=== PATIENT | female | born 1995 | race Caucasian/White ===

== ENCOUNTER 2017-08-28 02:50 | Emergency (ER) | payer BC ==
[~2017-08-28] VITALS: Ht 170.2 cm; Wt 59.8 kg
[2017-08-28 02:54] VITALS: BP 139/63; PULSE 80; RESP 18; TEMP 97.9; O2SAT 99
[2017-08-28 03:24] VITALS: BP 139/65; PULSE 80; RESP 18; O2SAT 99
[2017-08-28] MEDS ORDERED: SODIUM CHLOR 0.9% 1000 ML INJ 1,000 ML IV ONE ×2 (03:34→05:00)
[2017-08-28] MEDS ORDERED: SODIUM CHLORIDE 0.9% FLUSH 10 ML FLUSH IVF PRN (03:45)
[2017-08-28] MEDS ORDERED: PANTOPRAZOLE SODIUM 40 MG VIAL IV PUSH ONE (03:45)
[2017-08-28] MEDS ORDERED: ONDANSETRON HCL 4 MG/2 ML VIAL IV PUSH ONE (03:45)
[2017-08-28 03:59] LABS: AUTOMATED NEUTROPHIL # 13.2 TH/MM3 (1.8-7.7); BASOPHIL # 0.1 TH/MM3 (0-0.2); BASOPHIL % 0.4 % (0.0-2.0); EOSINOPHIL # 0.1 TH/MM3 (0-0.4); EOSINOPHIL % 0.4 % (0.0-4.0); HEMOGLOBIN 14.9 GM/DL (11.6-15.3); LYMPH % 12.1 % (9.0-44.0); LYMPHOCYTE # 1.9 TH/MM3 (1.0-4.8); MEAN CELL VOLUME 89.3 FL (80.0-100.0); MEAN CORPUSCULAR HEMOGLOBIN 30.3 PG (27.0-34.0); MEAN CORPUSCULAR HGB CONC 33.9 % (32.0-36.0); MEAN PLATELET VOLUME 8.5 FL (7.0-11.0); MONO % 4.3 % (0.0-8.0); MONOCYTE # 0.7 TH/MM3 (0-0.9); NEUT % 82.8 % (16.0-70.0); PLATELET COUNT 271 TH/MM3 (150-450); RED BLOOD COUNT 4.93 MIL/MM3 (4.00-5.30); RED CELL DISTRIBUTION WIDTH 11.5 % (11.6-17.2)
[2017-08-28 04:08] LABS: CHLORIDE 103 MEQ/L (98-107); SODIUM (NA) 136 MEQ/L (136-145)
[2017-08-28 04:11] LABS: CALCIUM 9.5 MG/DL (8.5-10.1)
[2017-08-28 04:12] LABS: ALBUMIN 4.9 GM/DL (3.4-5.0); BICARBONATE 22.1 MEQ/L (21.0-32.0); BLOOD UREA NITROGEN 8 MG/DL (7-18); GLUCOSE,RANDOM 131 MG/DL (74-106)
[2017-08-28 04:14] LABS: ALT (GPT) 21 U/L (10-53); AST (GOT) 15 U/L (15-37); CREATININE 0.95 MG/DL (0.50-1.00); GLOMERULAR FILTRATION RATE 74 ML/MIN (>89)
[2017-08-28 04:16] LABS: TOTAL BILIRUBIN ADULT 0.8 MG/DL (0.2-1.0); TOTAL PROTEIN 8.9 GM/DL (6.4-8.2)
[2017-08-28 04:17] LABS: ALKALINE PHOSPHATASE 74 U/L (45-117)
[2017-08-28 04:44] LABS: BILIRUBIN, URINE NEG (NEG); BLOOD, URINE MOD (NEG); GLUCOSE,URINE NEG (NEG); KETONE, URINE 80 OR GREATER mg/dL (NEG); NITRITE,URINE NEG (NEG); PH, URINE 5.5 (5.0-8.5); URINE COLOR YELLOW (YELLW/STRAW); URINE LEUKOCYTE ESTERASE NEG (NEG)
[2017-08-28 04:49] LABS: BACTERIA, URINE OCC /hpf; SQUAMOUS EPITHELIAL CELL URINE > 8 /hpf (0-5)
[2017-08-28 05:06] VITALS: BP 117/58; PULSE 86; RESP 20; O2SAT 100
[2017-08-28 05:09] VITALS: O2SAT 100
[2017-08-28] MEDS ORDERED: PYRI100T PO (05:30)
[2017-08-28] MEDS ORDERED: METOCLOPRAMIDE HCL 10 MG TAB PO ONE (05:30)
[2017-08-28] MEDS ORDERED: REGL5TAB PO (05:30)
[2017-08-28] MEDS ORDERED: diphenhydrAMINE HCL 50 MG CAP PO ONE (05:30)
--- NOTE | 2017-08-28 05:30 | PD ---
HPI Chief Complaint: Abdominal Pain Time Seen by Provider: 03:34 Travel History International Travel<30 days: No Contact w/Intl Traveler<30days: No Traveled to known affect area: No History of Present Illness HPI 22-year-old female with no significant past medical history presents to the emergency room with acute onset of nausea, vomiting and epigastric abdominal pain since yesterday. Patient denies any fever, chills, diarrhea, vaginal discharge or bleeding, cough or shortness of breath. Pain is mild in the epigastric area worse after vomiting. Patient last menstrual cycle was a month ago and had spotting 2 days ago. Patient vomited 5-6 times mostly clear fluid. She denies any sick contacts or possibility for food poisoning. PFSH Past Medical History Medical History: Denies Significant Hx ?: Unknown LMP: "last month" Past Surgical History Surgical History: No Previous Surgery Social History Alcohol Use: No Tobacco Use: No Substance Use: No Allergies-Medications (Allergen,Severity, Reaction): Coded Allergies: No Known Allergies (Unverified , 08/28/17) Reported Meds & Prescriptions Reported Meds & Active Scripts Active Vitamin B-6 (Pyridoxine HCl) 100 Mg Tab 100 Mg PO DAILY Reglan (Metoclopramide HCl) 5 Mg Tab 5 Mg PO TIDAC Review of Systems Except as stated in HPI: all other systems reviewed are Neg General / Constitutional: No: Fever, Chills Eyes: No: Blurred Vision, Redness, Pain HENT: Positive: Lightheadedness, No: Rhinorrhea, Congestion, Neck Stiffness, Neck Pain, Earache Cardiovascular: No: Chest Pain or Discomfort, Palpitations, Dyspnea on exertion Respiratory: No: Cough, Shortness of Breath, Wheezing Gastrointestinal: Positive: Nausea, Vomiting, Abdominal Pain Genitourinary: No: Dysuria Musculoskeletal: No: Myalgias Skin: No Rash, No Hives Neurologic: No: Weakness, Dizziness, Syncope, Headache, Slurred Speech, Seizures Psychiatric: No: Suicidal Ideations Physical Exam Narrative Vital Signs Date Time Temp Pulse Resp B/P (MAP) Pulse Ox O2 Delivery O2 Flow Rate FiO2 08/28/17 05:09 100 Room Air 08/28/17 05:06 86 20 117/58 (77) 100 Room Air 08/28/17 03:24 80 18 139/65 (89) 99 08/28/17 02:54 97.9 80 18 139/63 (88) 99 GENERAL: Patient is alert and oriented -3 SKIN: Focused skin assessment warm/dry. HEAD: Atraumatic. Normocephalic. EYES: Pupils equal and round. No scleral icterus. No injection or drainage. ENT: No nasal bleeding or discharge. Mucous membranes pink and moist. NECK: Trachea midline. No JVD. CARDIOVASCULAR: Regular rate and rhythm. No murmur appreciated. RESPIRATORY: No accessory muscle use. Clear to auscultation. Breath sounds equal bilaterally. GASTROINTESTINAL: Abdomen soft, mild epigastric tenderness nondistended. Hepatic and splenic margins not palpable. MUSCULOSKELETAL: No obvious deformities. No clubbing. No cyanosis. No edema. NEUROLOGICAL: Awake and alert. No obvious cranial nerve deficits. Motor grossly within normal limits. Normal speech. PSYCHIATRIC: Appropriate mood and affect; insight and judgment normal. Data Data Last Documented VS Vital Signs Date Time Temp Pulse Resp B/P (MAP) Pulse Ox O2 Delivery O2 Flow Rate FiO2 08/28/17 05:47 78 18 116/60 (78) 100 08/28/17 05:09 Room Air 08/28/17 02:54 97.9 Vital Signs Date Time Temp Pulse Resp B/P (MAP) Pulse Ox O2 Delivery O2 Flow Rate FiO2 08/28/17 05:47 78 18 116/60 (78) 100 08/28/17 05:09 100 Room Air 08/28/17 05:06 86 20 117/58 (77) 100 Room Air 08/28/17 03:24 80 18 139/65 (89) 99 08/28/17 02:54 97.9 80 18 139/63 (88) 99 Orders Orders Complete Blood Count With Diff (08/28/17 03:34) Comprehensive Metabolic Panel (08/28/17 03:34) Urinalysis - C+S If Indicated (08/28/17 03:34) Lipase (08/28/17 03:34) Iv Access Insert/Monitor (08/28/17 03:34) Ecg Monitoring (08/28/17 03:34) Oximetry (08/28/17 03:34) Ondansetron Inj (Zofran Inj) (08/28/17 03:45) Pantoprazole Inj (Protonix Inj) (08/28/17 03:45) Sodium Chlor 0.9% 1000 Ml Inj (Ns 1000 M (08/28/17 03:34) Sodium Chloride 0.9% Flush (Ns Flush) (08/28/17 03:45) Ed Urine Pregnancytest Poc (08/28/17 03:34) Sodium Chlor 0.9% 1000 Ml Inj (Ns 1000 M (08/28/17 05:00) Ed Discharge Order (08/28/17 05:30) Metoclopramide (Reglan) (08/28/17 05:30) Diphenhydramine (Benadryl) (08/28/17 05:30) Labs Laboratory Tests Test 08/28/17 03:30 08/28/17 04:30 White Blood Count 16.0 TH/MM3 Red Blood Count 4.93 MIL/MM3 Hemoglobin 14.9 GM/DL Hematocrit 44.0 % Mean Corpuscular Volume 89.3 FL Mean Corpuscular Hemoglobin 30.3 PG Mean Corpuscular Hemoglobin Concent 33.9 % Red Cell Distribution Width 11.5 % Platelet Count 271 TH/MM3 Mean Platelet Volume 8.5 FL Neutrophils (%) (Auto) 82.8 % Lymphocytes (%) (Auto) 12.1 % Monocytes (%) (Auto) 4.3 % Eosinophils (%) (Auto) 0.4 % Basophils (%) (Auto) 0.4 % Neutrophils # (Auto) 13.2 TH/MM3 Lymphocytes # (Auto) 1.9 TH/MM3 Monocytes # (Auto) 0.7 TH/MM3 Eosinophils # (Auto) 0.1 TH/MM3 Basophils # (Auto) 0.1 TH/MM3 CBC Comment DIFF FINAL Differential Comment Blood Urea Nitrogen 8 MG/DL Creatinine 0.95 MG/DL Random Glucose 131 MG/DL Total Protein 8.9 GM/DL Albumin 4.9 GM/DL Calcium Level 9.5 MG/DL Alkaline Phosphatase 74 U/L Aspartate Amino Transf (AST/SGOT) 15 U/L Alanine Aminotransferase (ALT/SGPT) 21 U/L Total Bilirubin 0.8 MG/DL Sodium Level 136 MEQ/L Potassium Level 3.4 MEQ/L Chloride Level 103 MEQ/L Carbon Dioxide Level 22.1 MEQ/L Anion Gap 11 MEQ/L Estimat Glomerular Filtration Rate 74 ML/MIN Lipase 114 U/L Urine Color YELLOW Urine Turbidity SL CLOUDY Urine pH 5.5 Urine Specific [place] GREATER/EQUAL 1.030 Urine Protein 100 mg/dL Urine Glucose (UA) NEG mg/dL Urine Ketones 80 OR GREATER mg/dL Urine Occult Blood MOD Urine Nitrite NEG Urine Bilirubin NEG Urine Urobilinogen 1.0 MG/DL Urine Leukocyte Esterase NEG Urine RBC 4-9 /hpf Urine WBC 3-5 /hpf Urine Squamous Epithelial Cells > 8 /hpf Urine Bacteria OCC /hpf Microscopic Urinalysis Comment CULT NOT INDICATED MDM Medical Decision Making Medical Screen Exam Complete: Yes Emergency Medical Condition: Yes Medical Record Reviewed: Yes Differential Diagnosis Gastritis, gastroenteritis, food poisoning, cholecystitis, hyperemesis gravidarum Narrative Course Patient condition improved after IV fluids and Zofran. Patient was found to be . Diagnosis Primary Impression: Hyperemesis gravidarum Additional Impression: Dehydration Referrals: Maggie Fox MD 3 days Patient Instructions: Dehydration (ED), General Instructions, Hyperemesis Gravidarum (ED) Scripts Pyridoxine (Vitamin B-6) 100 Mg Tab 100 MG PO DAILY for Nutritional Supplement, #30 TAB 0 Refills Prov: Eren Dumont MD 08/28/17 Metoclopramide (Reglan) 5 Mg Tab 5 MG PO TIDAC, #12 TAB 0 Refills Prov: Eren Dumont MD 08/28/17 Disposition: 01 DISCHARGE HOME Condition: Stable Eren Dumont MD Aug 28, 2017 05:30
[2017-08-28 05:47] VITALS: BP 116/60
== END 2017-08-28 05:55 | disposition home or self-care (01) ==
LOC: PHED 02:50
DX: O21.0 Mild hyperemesis gravidarum (principal); E86.0 Dehydration; R42 Dizziness and giddiness; R10.13 Epigastric pain; Z79.899 Other long term (current) drug therapy
CPT/HCPCS: 80053; 81001; 83690; 84703; 85025; 96361; 96374; 96375; 99284; C9113; J2405; J7030; Q0163

== ENCOUNTER 2017-08-29 19:25 | Emergency (ER) | payer BC ==
[~2017-08-29] VITALS: Ht 170.2 cm; Wt 58.6 kg
[~2017-08-29 19:25] MED LIST: PYRI100T PO; REGL5TAB PO
[2017-08-29 19:27] VITALS: BP 137/73; PULSE 78; RESP 16; TEMP 99.6; O2SAT 99
--- NOTE | 2017-08-29 19:49 | PD ---
HPI Chief Complaint: Related Problem Time Seen by Provider: 19:48 Travel History International Travel<30 days: No Contact w/Intl Traveler<30days: No Traveled to known affect area: No History of Present Illness HPI 22-year-old female came to the emergency room with history of nausea and vomiting feeling lightheaded. Patient says this is been going on for past 3-4 days. Patient is and says her last menstrual cycle was about 4 weeks ago. She has been having some abdominal pain and spotting since yesterday as well. Patient is A1. She was in the emergency room yesterday for the exact same complaint. She had blood work done, IV fluids given and was discharged home on prescription for antiemetics. Family is in there with her and says that she has been taking them but is unable to hold it down the shoulder getting lightheaded. They have looked at the side effect of the medication and dizziness was 1 of the side effects and hence brought her back here since they are concerned. Patient appears to be in distress but answers questions appropriately. Vital signs are relatively stable. She is otherwise a healthy person. No history of diarrhea. [facility] Past Medical History Narrative Medical List of her past medical, surgical, social and family history is reviewed from the nursing note. Medical History: Denies Significant Hx Influenza Vaccination: No ?: : 2 : 1 Past Surgical History Surgical History: No Previous Surgery Social History Alcohol Use: No Tobacco Use: No Substance Use: No Allergies-Medications (Allergen,Severity, Reaction): Coded Allergies: No Known Allergies (Unverified , 08/29/17) Comments No known drug allergies. Reported Meds & Prescriptions Reported Meds & Active Scripts Active Vitamin B-6 (Pyridoxine HCl) 100 Mg Tab 100 Mg PO DAILY Reglan (Metoclopramide HCl) 5 Mg Tab 5 Mg PO TIDAC Narrative Medication List of her home medications reviewed from the nursing note. Review of Systems Except as stated in HPI: all other systems reviewed are Neg Gastrointestinal: Positive: Nausea Genitourinary: Positive: Vaginal Bleeding Physical Exam Narrative GENERAL: Awake, alert, moderate to significant history SKIN: Focused skin assessment warm/dry. HEAD: Atraumatic. Normocephalic. EYES: Pupils equal and round. No scleral icterus. No injection or drainage. ENT: No nasal bleeding or discharge. Dry mucous membrane. NECK: Trachea midline. No JVD. CARDIOVASCULAR: Regular rate and rhythm. No murmur appreciated. RESPIRATORY: No accessory muscle use. Clear to auscultation. Breath sounds equal bilaterally. GASTROINTESTINAL: Abdomen soft, non-tender, nondistended. Hepatic and splenic margins not palpable. MUSCULOSKELETAL: No obvious deformities. No clubbing. No cyanosis. No edema. NEUROLOGICAL: Awake and alert. No obvious cranial nerve deficits. Motor grossly within normal limits. Normal speech. PSYCHIATRIC: Appropriate mood and affect; insight and judgment normal. Data Data Last Documented VS Orders Orders Basic Metabolic Panel (Bmp) (08/29/17 19:55) Beta Hcg (Quant/Titer) (08/29/17 19:55) Complete Blood Count With Diff (08/29/17 19:55) Urinalysis - C+S If Indicated (08/29/17 19:55) Iv Access Insert/Monitor (08/29/17 19:55) Ecg Monitoring (08/29/17 19:55) Oximetry (08/29/17 19:55) Sodium Chlor 0.9% 1000 Ml Inj (Ns 1000 M (08/29/17 19:55) Sodium Chloride 0.9% Flush (Ns Flush) (08/29/17 20:00) Sodium Chlor 0.9% 1000 Ml Inj (Ns 1000 M (08/29/17 20:00) Metoclopramide Inj (Reglan Inj) (08/29/17 20:00) Potassium Chlor 20 Meq Premix (Kcl 20 Me (08/29/17 20:45) Lactated Ringer's 1000 Ml Inj (Lr 1000 M (08/29/17 21:45) Ed Discharge Order (08/29/17 21:37) Labs Laboratory Tests Test 08/29/17 20:05 08/29/17 21:21 White Blood Count 14.7 TH/MM3 Red Blood Count 4.80 MIL/MM3 Hemoglobin 14.4 GM/DL Hematocrit 41.6 % Mean Corpuscular Volume 86.8 FL Mean Corpuscular Hemoglobin 30.0 PG Mean Corpuscular Hemoglobin Concent 34.6 % Red Cell Distribution Width 11.6 % Platelet Count 253 TH/MM3 Mean Platelet Volume 8.1 FL Neutrophils (%) (Auto) 82.3 % Lymphocytes (%) (Auto) 10.1 % Monocytes (%) (Auto) 6.9 % Eosinophils (%) (Auto) 0.3 % Basophils (%) (Auto) 0.4 % Neutrophils # (Auto) 12.1 TH/MM3 Lymphocytes # (Auto) 1.5 TH/MM3 Monocytes # (Auto) 1.0 TH/MM3 Eosinophils # (Auto) 0.0 TH/MM3 Basophils # (Auto) 0.1 TH/MM3 CBC Comment DIFF FINAL Differential Comment Blood Urea Nitrogen 9 MG/DL Creatinine 0.76 MG/DL Random Glucose 110 MG/DL Calcium Level 8.7 MG/DL Sodium Level 134 MEQ/L Potassium Level 3.0 MEQ/L Chloride Level 99 MEQ/L Carbon Dioxide Level 23.6 MEQ/L Anion Gap 11 MEQ/L Estimat Glomerular Filtration Rate 95 ML/MIN Human Chorionic Gonadotropin, Quant 44510 MIU/ML Urine Color YELLOW Urine Turbidity CLEAR Urine pH 6.0 Urine Specific [place] 1.025 Urine Protein TRACE mg/dL Urine Glucose (UA) NEG mg/dL Urine Ketones 80 OR GREATER mg/dL Urine Occult Blood NEG Urine Nitrite NEG Urine Bilirubin NEG Urine Urobilinogen 0.2 MG/DL Urine Leukocyte Esterase NEG Urine RBC 0-3 /hpf Urine WBC 3-5 /hpf Urine Squamous Epithelial Cells > 8 /hpf Urine Bacteria OCC /hpf Microscopic Urinalysis Comment CULT NOT INDICATED MDM Medical Decision Making Medical Screen Exam Complete: Yes Emergency Medical Condition: Yes Medical Record Reviewed: Yes Differential Diagnosis Hyperemesis gravidarum, dehydration, ketoacidosis Narrative Course 8:12 PM awaiting for blood test result. Patient is getting 2 L of IV fluid bolus meanwhile. I have ordered for Reglan as the antiemetic. I will reassess her in a bit. 9:38 PM blood test results are back and within normal limit. Beta-hCG is up consistent with the . UA has ketones and I have ordered 31 L of fluid bolus and lactated Ringer this time. After the fluid patient will be discharged home. She has antiemetic prescription that she needs to continue taking. Procedures EKG Prior to Arrival: No Diagnosis Primary Impression: Hyperemesis gravidarum Additional Impression: Ketonuria Additional Instructions: Take the medication that is prescribed to you yesterday for the vomiting. Return to ER if condition worsens or any other new concerns. Otherwise follow- up with OB. Take vitamins every day. Try to stay hydrated. Disposition: 01 DISCHARGE HOME Condition: Stable Lela,Shravanti R. MD Aug 29, 2017 19:49
[2017-08-29] MEDS ORDERED: SODIUM CHLOR 0.9% 1000 ML INJ 1,000 ML IV SCH (19:55)
[2017-08-29] MEDS ORDERED: METOCLOPRAMIDE HCL 10 MG/2 ML VIAL IV PUSH ONE (20:00)
[2017-08-29] MEDS ORDERED: SODIUM CHLOR 0.9% 1000 ML INJ 1,000 ML IV ONE (20:00)
[2017-08-29] MEDS ORDERED: SODIUM CHLORIDE 0.9% FLUSH 10 ML FLUSH IV FLUSH PRN (20:00)
[2017-08-29 20:10] LABS: AUTOMATED NEUTROPHIL # 12.1 TH/MM3 (1.8-7.7); BASOPHIL # 0.1 TH/MM3 (0-0.2); BASOPHIL % 0.4 % (0.0-2.0); EOSINOPHIL % 0.3 % (0.0-4.0); HEMATOCRIT 41.6 % (35.0-46.0); HEMOGLOBIN 14.4 GM/DL (11.6-15.3); LYMPH % 10.1 % (9.0-44.0); LYMPHOCYTE # 1.5 TH/MM3 (1.0-4.8); MEAN CELL VOLUME 86.8 FL (80.0-100.0); MEAN CORPUSCULAR HGB CONC 34.6 % (32.0-36.0); MEAN PLATELET VOLUME 8.1 FL (7.0-11.0); MONO % 6.9 % (0.0-8.0); NEUT % 82.3 % (16.0-70.0); PLATELET COUNT 253 TH/MM3 (150-450); RED CELL DISTRIBUTION WIDTH 11.6 % (11.6-17.2); WHITE BLOOD COUNT 14.7 TH/MM3 (4.0-11.0)
[2017-08-29 20:14] VITALS: O2SAT 98
[2017-08-29 20:45] LABS: BICARBONATE 23.6 MEQ/L (21.0-32.0); CALCIUM 8.7 MG/DL (8.5-10.1); CREATININE 0.76 MG/DL (0.50-1.00)
[2017-08-29] MEDS ORDERED: POTASSIUM CHLOR 20 MEQ PREMIX 100 ML IV ONE (20:45)
[2017-08-29 20:49] VITALS: BP 116/57; PULSE 78; RESP 18; O2SAT 100
[2017-08-29 21:30] LABS: BILIRUBIN, URINE NEG (NEG); BLOOD, URINE NEG (NEG); GLUCOSE,URINE NEG (NEG); KETONE, URINE 80 OR GREATER mg/dL (NEG); NITRITE,URINE NEG (NEG); URINE COLOR YELLOW (YELLW/STRAW); URINE LEUKOCYTE ESTERASE NEG (NEG)
[2017-08-29 21:35] LABS: RBC, URINE 0-3 /hpf (0-3)
[2017-08-29 21:36] LABS: BACTERIA, URINE OCC /hpf; SQUAMOUS EPITHELIAL CELL URINE > 8 /hpf (0-5)
[2017-08-29] MEDS ORDERED: LACTATED RINGER'S 1000 ML INJ 1,000 ML IV ONE (21:45)
[2017-08-29 23:01] VITALS: BP 100/62; PULSE 85; RESP 16; O2SAT 100
== END 2017-08-29 23:04 | disposition home or self-care (01) ==
LOC: PHED 19:25
DX: O21.0 Mild hyperemesis gravidarum (principal); O20.9 Hemorrhage in early pregnancy, unspecified; O99.89 Other specified diseases and conditions complicating pregnancy, childbirth and the puerperium; R82.4 Acetonuria; R10.9 Unspecified abdominal pain
CPT/HCPCS: 80048; 81001; 84702; 85025; 96361; 96365; 96366; 96375; 99284; J2765; J3480; J7030; J7120